=== PATIENT | female | born 1955 | race Caucasian/White ===

== ENCOUNTER 2020-07-17 06:05 | Emergency (ER) | payer MEDICARE, OTHER ==
[2020-07-17] MEDS ORDERED: fentaNYL INJECTION 100 MCG/2 ML AMP IVP ONE (06:30)
[2020-07-17] MEDS ORDERED: ONDANSETRON 4 MG/2 ML (SDV) Z0FRAN IVP ONE (06:30)
--- NOTE | 2020-07-17 06:31 | ED General ---
General Chief Complaint: Trauma-Non Activation Stated Complaint: FALL Nursing Triage Note: Pt states she was going to the bathroom this morning and became dizzy causing her to fall. Pt presents via ems complaining of left hip pain Nursing Sepsis Screen: No Definite Risk History of Present Illness Date Seen by Provider: Jul 17, 2020 Time Seen by Provider: 06:28 Initial Comments Patient presenting to emergency department for evaluation of a fall with left hip pain. She says she was getting up to go the bathroom and took several steps and then she felt a lightheaded sensation and may have had a syncopal episode and she says she is hurting in her left hip down was not able to get up. The left leg is slightly shortened and rotated. She has a history of atrial fibrillation and is supposed to be on either Eliquis or general tunnel but did n't like to elevate her feel and has not been on anticoagulation for her 6 months and takes aspirin intermittently. She says she always has numbness and tingling in her extremities but she has no new numbness weakness numbness or tingling. No other areas of pain or trauma and she is in no obvious distress with normal vital signs. Allergies and Home Medications Allergies Coded Allergies: Sulfa (Sulfonamide Antibiotics) (Verified Allergy, Unknown, 07/17/20) acetaminophen (Verified Allergy, Unknown, 07/17/20) oxycodone (Verified Allergy, Unknown, 07/17/20) Patient Home Medication List Home Medication List Reviewed: Yes Review of Systems Review of Systems Constitutional: dizziness EENTM: no symptoms reported Respiratory: no symptoms reported Cardiovascular: syncope Gastrointestinal: no symptoms reported Genitourinary: no symptoms reported Musculoskeletal: joint pain Skin: no symptoms reported Psychiatric/Neurological: No Symptoms Reported All Other Systems Reviewed Negative Unless Noted: Yes Past Sxfknpr-Nqulio-Wmzhig Hx Patient Social History Alcohol Use: Denies Use Recreational Drug Use: No Smoking Status: Current Everyday Smoker 2nd Hand Smoke Exposure: No Recent Foreign Travel: No Contact w/Someone Who Travel: No Recent Infectious Disease Expo: No Recent Hopitalizations: No Physical Abuse: No Sexual Abuse: No Past Medical History Surgeries: Yes Orthopedic Respiratory: No Cardiac: Yes Atrial Fibrillation Neurological: No Genitourinary: No Gastrointestinal: No Musculoskeletal: No Endocrine: No HEENT: No Cancer: No Psychosocial: No Integumentary: No Physical Exam Vital Signs Vital Signs - First Documented 07/17/20 06:12 Temp 37.0 Pulse 88 Resp 18 B/P (MAP) 128/71 (90) Pulse Ox 96 O2 Delivery Room Air Capillary Refill : Less Than 3 Seconds Height, Weight, BMI Height: '" Weight: lbs. oz. kg; BMI Method: General Appearance: No Apparent Distress, WD/WN HEENT: PERRL/EOMI Neck: Supple Respiratory: Normal Breath Sounds, No Respiratory Distress Cardiovascular: Regular Rate, Rhythm Gastrointestinal: Non Tender, Soft Back: Normal Inspection Extremity: Normal Capillary Refill, No Pedal Edema, Other (left leg slightly shortened and rotated) Neurologic/Psychiatric: Alert, Oriented x3, No Motor/Sensory Deficits Progress/Results/Core Measures Suspected Sepsis Recent Fever Within 48 Hours: No Infection Criteria Present: None New/Unexplained Altered Menta: No Sepsis Screen: No Definite Risk SIRS Temperature: Pulse: 88 Respiratory Rate: 18 Blood Pressure 128 /71 Mean: 90 Results/Orders My Orders Orders - LAURIE ORELLANA DO Hip 2-3 View Left (07/17/20 06:21) Cbc With Automated Diff (07/17/20 06:23) Comprehensive Metabolic Panel (07/17/20 06:23) Iv/Invasive Line Insertion .IV start (07/17/20 06:23) Ekg Tracing (07/17/20 06:23) Ua Culture If Indicated (07/17/20 06:23) Troponin I Fs (07/17/20 06:23) Probnp Fs (07/17/20 06:23) Protime With Inr (07/17/20 06:23) Partial Thromboplastin Time (07/17/20 06:23) Fentanyl Injection (Sublimaze Injection (07/17/20 06:30) Ondansetron Injection (Zofran Injectio (07/17/20 06:30) Ed Iv/Invasive Line Start (07/17/20 06:38) Medications Given in ED Current Medications Medications Dose Ordered Sig/Tristan Route Start Time Stop Time Status Last Admin Dose Admin Fentanyl Citrate 75 mcg ONCE ONCE IVP 07/17/20 06:30 07/17/20 06:31 DC 07/17/20 06:35 75 MCG Ondansetron HCl 4 mg ONCE ONCE IVP 07/17/20 06:30 07/17/20 06:31 DC 07/17/20 06:35 4 MG Vital Signs/I&O 07/17/20 06:12 Temp 37.0 Pulse 88 Resp 18 B/P (MAP) 128/71 (90) Pulse Ox 96 O2 Delivery Room Air Capillary Refill : Less Than 3 Seconds Blood Pressure Mean: 90 Progress Note : Progress Note Will check labs imaging treat pain and reassess. Patient appears to have a left hip fracture and I spoke to Dr. Rossi to accept the patient and will consult Dr. Soto for cardiology clearance given her A. fib and I spoke to Dr. Drake regarding the left hip fracture. Departure Impression Primary Impression: Hip fracture, left Qualified Codes: S72.002A - Fracture of unspecified part of neck of left femur, initial encounter for closed fracture Additional Impressions: Atrial fibrillation Syncope and collapse Disposition: ADMITTED INPATIENT Condition: Stable Transfer Transfer Reason: Exceeds level of care Transfer Facility: [facility] Method of Transfer: EMS LAURIE ORELLANA DO Jul 17, 2020 06:31
[2020-07-17 07:07] LABS: WHITE BLOOD COUNT 16.8 10^3/uL (4.3-11.0)
[2020-07-17 07:08] LABS: BASOPHILS % (AUTO) 0 % (0-10); EOSINOPHILS % (AUTO) 1 % (0-10); HEMATOCRIT 49 % (35-52); HEMOGLOBIN 16.5 G/DL (11.5-16.0); LYMPHOCYTES % (AUTO) 18 % (12-44); MEAN CORPUSCULAR HEMOGLOBIN 30 PG (25-34); MEAN CORPUSCULAR HGB CONC 34 G/DL (32-36); MEAN CORPUSCULAR VOLUME 88 FL (80-99); MEAN PLATELET VOLUME 9.2 FL (7.4-10.4); MONOCYTES % (AUTO) 5 % (0-12); NEUTROPHILS # (AUTO) 12.6 X 10^3 (1.8-7.8); NEUTROPHILS % (AUTO) 75 % (42-75); PLATELET COUNT 261 10^3/uL (130-400)
[2020-07-17 07:09] LABS: BASOPHILS # (AUTO) 0.1 10^3/uL (0.0-0.1); EOSINOPHILS # (AUTO) 0.1 10^3/uL (0.0-0.3); MONOCYTES # (AUTO) 0.8 X 10^3 (0.0-1.0)
[2020-07-17 07:16] LABS: PROTHROMBIN TIME PATIENT 13.8 SEC (12.2-14.7)
--- NOTE | 2020-07-17 07:17 | Diagnostic Imaging Report ---
INDICATION: pain s/p fall. TECHNIQUE: Multiple views, 5 radiographs left hip, 6:41 AM. CORRELATION STUDY: None FINDINGS: Findings are positive for an impacted left femoral neck fracture. Foreshortening of the femoral neck is present. The femoral head acetabular relationship is maintained. Visualized portion of the left hemipelvis preserved. IMPRESSION: 1. Impacted, foreshortened left femoral neck fracture. Dictated by: Dictated on workstation # [id number]
[2020-07-17 07:32] LABS: BUN/CREATININE RATIO 10; CALCIUM 8.8 MG/DL (8.5-10.1); CARBON DIOXIDE 25 MMOL/L (21-32); CHLORIDE 104 MMOL/L (98-107); CREATININE SERUM 0.79 MG/DL (0.60-1.30); GFR ESTIMATED > 60; GLUCOSE 108 MG/DL (70-105); POTASSIUM 4.3 MMOL/L (3.6-5.0); SODIUM 141 MMOL/L (135-145)
[2020-07-17 07:33] LABS: ALANINE AMINOTRANSFERASE 12 U/L (0-55); ALBUMIN 3.9 GM/DL (3.2-4.5); ALKALINE PHOSPHATASE 123 U/L (40-136); BILIRUBIN,TOTAL 0.7 MG/DL (0.1-1.0); TOTAL PROTEIN 6.6 GM/DL (6.4-8.2)
[2020-07-17 07:40] LABS: BAND NEUTROPHILS 4 %; BASOPHILS % (MANUAL) 0 %; EOSINOPHILS % (MANUAL) 1 %; LYMPHOCYTES % (MANUAL) 18 %; MONOCYTES % (MANUAL) 4 %; NEUTROPHILS % (MANUAL) 73 %
[2020-07-17] MEDS ORDERED: NS IV 1000 ML 1,000 ML IV STA (07:43)
[2020-07-17] MEDS ORDERED: fentaNYL INJECTION 100 MCG/2 ML AMP IVP STA (07:43)
[2020-07-17 07:52] LABS: CLARITY,URINE CLEAR; COLOR,URINE YELLOW
[2020-07-17 07:53] LABS: BACTERIA,URINE NEGATIVE /HPF; BILIRUBIN,URINE NEGATIVE (NEGATIVE); GLUCOSE, URINE (UA) NEGATIVE (NEGATIVE); KETONES,URINE NEGATIVE (NEGATIVE); LEUKOCYTE ESTERASE ,URINE NEGATIVE (NEGATIVE); NITRITE,URINE NEGATIVE (NEGATIVE); PROTEIN,URINE NEGATIVE (NEGATIVE); SQUAMOUS EPITHELIAL CELL,UR 0-2 /HPF
[2020-07-17 08:45] VITALS: BP 118/65
== END 2020-07-17 08:45 | disposition short-term general hospital (02) ==
LOC: EDUNIT# 06:05 → ER FS 06:09
DX: S72.002A Fracture of unspecified part of neck of left femur, initial encounter for closed fracture (principal); I48.91 Unspecified atrial fibrillation; R55 Syncope and collapse; F17.200 Nicotine dependence, unspecified, uncomplicated; Z88.5 Allergy status to narcotic agent; Z88.6 Allergy status to analgesic agent; Z88.2 Allergy status to sulfonamides; W10.9XXA Fall (on) (from) unspecified stairs and steps, initial encounter
CPT/HCPCS: 36415; 51702; 73502; 80053; 81000; 83880; 84484; 85007; 85027; 85610; 85730

== ENCOUNTER → 2021-03-08 | Outpatient (CLI) | payer MEDICARE | LOC: IHC 13:28 | PROVIDERS: ATTEND Family Medicine | DX: S42.201D Unspecified fracture of upper end of right humerus, subsequent encounter for fracture with routine healing (principal); R33.9 Retention of urine, unspecified; X58.XXXD Exposure to other specified factors, subsequent encounter | CPT/HCPCS: 87088 ==